=== PATIENT | male | born 1930 | race Caucasian/White ===

== ENCOUNTER → 2017-08-13 | Outpatient (CLI) | payer OTHER ==
[2017-08-13 09:21] VITALS: BP 110/64; BP 112/60; BP 117/62; BP 125/58
--- NOTE | 2017-08-13 10:45 | NUR ---
ARRIVED AMBULATORY. MADE SELF COMFORTABLE IN RECLINER. WARM BLANKET FOR COMFORT. SENIES ADVERSE REACTION TO PRIOR TRANSFUSION LAST OCTOBER. IV STARTED WITH OUT DIFFICULTY AND TYPE AND CROSS DRAWN FROM IV AT THAT TIME. CONSENT REVIEWED AND SIGNED. PREMEDICATION AND BASELINE VS OBTAINED. TRANSFUSION STARTED PER PROTOCOL AND RUNNING WELL. 100% OF ORDERED BREAKFAST EATEN. RESTING WITH EYES CLOSED. CALL LIGHT IN REACH.
--- NOTE | 2017-08-13 12:29 | NUR ---
TRANSFUSION COMPLETED AND TOLERATED WELL. DENIES ADVERSE REACTION AT THIS TIME. DENIES QUESTIONS OR NEEDS AT DISCHARGE.
== END ==
LOC: M.INFUS 07:19
DX: D46.9 Myelodysplastic syndrome, unspecified (principal); I13.10 Hypertensive heart and chronic kidney disease without heart failure, with stage 1 through stage 4 chronic kidney disease, or unspecified chronic kidney disease; N18.2 Chronic kidney disease, stage 2 (mild); Z95.5 Presence of coronary angioplasty implant and graft

== ENCOUNTER → 2018-02-19 | Outpatient (CLI) | payer OTHER ==
[2018-02-19 08:09] VITALS: BP 138/74; BP 152/70; BP 157/67; BP 160/77
--- NOTE | 2018-02-19 11:34 | NUR ---
TRANSFUSION COMPLETED AND TOLERATED WELL. PT REFUSED LASIX AT END STATING HE HAD ONLY RECIEVED ONE UNIT AND DID NOT WANT IT. DENIES QUESTIONS OR NEEDS AT DISCHARGE.
== END ==
LOC: M.INFUS 07:30
DX: D46.9 Myelodysplastic syndrome, unspecified (principal)

== ENCOUNTER → 2018-05-29 | Outpatient (CLI) | payer OTHER ==
[2018-05-29 11:22] VITALS: BP 124/55; BP 147/57; BP 158/63
== END ==
LOC: M.INFUS 06:03
DX: D46.9 Myelodysplastic syndrome, unspecified (principal)

== ENCOUNTER → 2018-07-03 | Outpatient (CLI) | payer OTHER ==
[2018-07-03 11:14] VITALS: BP 110/58; BP 118/64; BP 126/61; BP 137/52
--- NOTE | 2018-07-03 14:28 | NUR ---
ARRIVED AMBULATORY. MADE SELF COMFORTABLE IN RECLINER. IV STARTED AND TYPE AND CROSS DRAW. PREMEDS PER ORDER. TRANSFUSION COMPLETED AND TOLERATED WELL. DENIES NEEDS AT DICHARGE.
== END ==
LOC: M.INFUS 04:41
DX: D46.9 Myelodysplastic syndrome, unspecified (principal); R53.83 Other fatigue

== ENCOUNTER → 2018-08-14 | Outpatient (CLI) | payer OTHER ==
--- NOTE | 2018-08-14 08:00 | NUR ---
ARRIVED AMBULATORY. MADE SELF COMFORTABLE IN RECLINER. IV STARTED. PREMEDS GIVEN PER ORDER. PT RECEIVED A TOTAL OF 2 UNITS OF PRBC'S. PT RECEIVED 20 MG LASIX IV IN BETWEEN BOTH UNITS. TRANSFUSION COMPLETED AND TOLERATED WELL. DENIES NEEDS AT DISCHARGE.
[2018-08-14 08:26] VITALS: BP 121/52; BP 123/58; BP 127/58
[2018-08-14 10:39] VITALS: BP 125/55; BP 127/58; BP 128/66; BP 131/68
== END ==
LOC: M.INFUS 04:32
DX: D46.4 Refractory anemia, unspecified (principal)

== ENCOUNTER → 2018-09-18 | Outpatient (CLI) | payer OTHER ==
[2018-09-18 09:50] VITALS: BP 125/56; BP 128/62; BP 130/59; BP 96/48
--- NOTE | 2018-09-18 10:10 | NUR ---
ARRIVED AMBULATORY. MADE COMFORTABLE. IV STARTED AND PREMED COMPLETED. CONSENT REVIEWED AND SIGNED. PT REPORTS HE THOUGHT DR. ATKINS HAD WANTED TWO UNITS OF BLOOD. ORDER FOR BLOOD THAT WAS RECIEVED ONLY HAS ONE ORDERD. CALL PLACED TO DR. ATKINS. SPOKE WITH REBECCA OFFICE NURSE. STATED SHE WOULD SPEAK WITH DR. ATKINS AND SEND NEW ORDER IF NEEDED. PHONE CALL RECIEVED FROM REBECCA AND SHE STATED THAT SHE WAS FAXING NEW ORDER FOR 2 UNITS. NEW ORDER RECIEVED VIA FAX. BLOOD BANK UPDATED AND 2ND UNIT IS NOW READY FOR TRANSFUSION. PT UPDATED. VOICED UNDERSTANDING AND AGREED TO NEW PLAN. 1ST UNIT OF BLOOD STARTED AND RUNNING WELL. DENEIS CURRENT NEEDS.
[2018-09-18 11:54] VITALS: BP 124/55; BP 125/56; BP 128/62; BP 138/63
--- NOTE | 2018-09-18 14:46 | NUR ---
TRANSFUSION COMPLETED AND TOLERATED WELL. DENIES QUESTIONS OR NEEDS AT DISCHARGE.
== END ==
LOC: M.INFUS 09:25 → M.LAB 09:30 → M.INFUS 09:30
DX: D46.9 Myelodysplastic syndrome, unspecified (principal)

== ENCOUNTER → 2018-11-17 | Outpatient (CLI) | payer OTHER ==
--- NOTE | 2018-11-17 09:30 | NUR ---
Pt is resting comfortably in recliner. Blood has been checked by Jordy and vero. Pt has had multiple infusions. S\SX of reaction discussed. Pt has been pre-medicated. Lunch tray has been ordered.
[2018-11-17 09:31] VITALS: BP 103/54; BP 109/53; BP 110/52
--- NOTE | 2018-11-17 09:55 | NUR ---
Pt tolerating blood with out difficulty. Denies s\sx of reaction. Blood rate increased to 175cc/hr.
[2018-11-17 11:40] VITALS: BP 126/52; BP 126/61; BP 127/58; BP 130/78
--- NOTE | 2018-11-17 12:47 | NUR ---
PATIENT UP TO RESTROOM TO VOID, PRBC UNIT # 2 TO BEGIN. LASIX 20 MG GIVEN IV PUSH, PATIENT TOLERATING BLOOD TRANSFUSION WITHOUT ADVERSE EFFECTS.
--- NOTE | 2018-11-17 15:50 | NUR ---
DISCHARGE INSTRUCTIONS AND TRANSFUSION REACTIONS REVIEWED. PATIENT REPORTS FEELING BETTER WITH GOOD SKIN COLOR OBSERVED, VITALS STABLE. DISCHARGED TO [facility].
== END ==
LOC: M.INFUS 05:26
DX: D46.9 Myelodysplastic syndrome, unspecified (principal)

== ENCOUNTER → 2019-03-26 | Outpatient (CLI) | payer OTHER ==
[2019-03-26 11:10] VITALS: BP 124/59
[2019-03-26 12:48] VITALS: BP 123/61; BP 129/64; BP 152/71
--- NOTE | 2019-03-26 15:11 | NUR ---
PATIENT ADMITTED PRE-TYPED AND CROSSMATCHED FOR ONE UNIT OF PRBCS, TRANSFUSION STARTED AFTER PRE-MEDICATIONS AND COMPLETED WITH NO ADVERSE EFFECTS OR COMPLAINTS REPORTED. PATIENT DISCHARGED WITH AFTER IV DISCONTINUED.
== END ==
LOC: M.LAB 03-25 12:00 → M.INFUS 03-25 12:00
DX: D46.9 Myelodysplastic syndrome, unspecified (principal)

== ENCOUNTER → 2019-04-16 | Outpatient (CLI) | payer OTHER ==
[2019-04-16 08:55] VITALS: BP 120/56; BP 139/59; BP 142/57
[2019-04-16 11:15] VITALS: BP 124/61; BP 127/59; BP 128/62; BP 142/57
--- NOTE | 2019-04-16 13:42 | NUR ---
ARIVED AMBULATORY. MADE SLEF COMFORTABLE. AND SON AT CHAIRSIDE. DENEIS ADVERSE REACTION TO MULTIPLE PRIOR TRANSFUSIONS. IV STARTED WITH OUT DIFFICULTY. TRANSFUSION COMPLETED AND TOERLATED WELL. DENEIS QUESTIONS OR NEEDS AT DISCHARGE.
== END ==
LOC: M.INFUS 04:45
DX: D46.9 Myelodysplastic syndrome, unspecified (principal); I11.9 Hypertensive heart disease without heart failure; I12.9 Hypertensive chronic kidney disease with stage 1 through stage 4 chronic kidney disease, or unspecified chronic kidney disease; N18.2 Chronic kidney disease, stage 2 (mild)

== ENCOUNTER → 2019-05-13 | Outpatient (CLI) | payer OTHER ==
[2019-05-13 09:22] VITALS: BP 153/70; BP 158/71; BP 179/80
[2019-05-13 11:28] VITALS: BP 129/84; BP 146/78; BP 158/71; BP 178/78
--- NOTE | 2019-05-13 13:59 | NUR ---
2 UNIT BLOOD TRANSFUSION COMPLETED AND TOLERATED WELL. UP TO RESTOOM X3 POST LASIX. DENIES QUESTIONS OR NEED AT DISCHARGE.
== END ==
LOC: M.INFUS 07:55
DX: D46.4 Refractory anemia, unspecified (principal); I13.0 Hypertensive heart and chronic kidney disease with heart failure and stage 1 through stage 4 chronic kidney disease, or unspecified chronic kidney disease; I50.9 Heart failure, unspecified; N18.2 Chronic kidney disease, stage 2 (mild); H26.9 Unspecified cataract

== ENCOUNTER → 2019-07-02 | Outpatient (CLI) | payer OTHER ==
[2019-07-02 09:02] VITALS: BP 132/65; BP 138/68; BP 143/74
--- NOTE | 2019-07-02 13:18 | NUR ---
ARRIVED AMBULATORY WITH . MADE SELF COMFORTABLE IN RECLINER. IV STARTED AND TYPE AND CROSS COMPLETED. DENIES PRIOR ADVERSE REACTION TO MULTIPLE BLOOD TRANSFUSIONS. TRANSFUSION COMPLETED AND TOERLATED WELL. DENIES NEEDS OR QUESTIONS AT DISCHARGE
== END ==
LOC: M.INFUS 05:01
DX: D46.9 Myelodysplastic syndrome, unspecified (principal)